=== PATIENT | female | born 1970 | race Caucasian/White ===

== ENCOUNTER 2017-07-20 18:23 | Emergency (ER) | payer OTHER ==
[~2017-07-20] VITALS: Ht 170.2 cm; Wt 59.0 kg
[~2017-07-20 18:23] MED LIST: ALLEGRA ALLERG180 MG PO; MUCINEX TA600 MG/TA2 PO
[2017-07-20 19:27] LABS: URINE BILIRUBIN NEGATIVE (Negative); URINE BLOOD NEGATIVE (Negative); URINE COLOR YELLOW; URINE GLUCOSE-RANDOM* NEGATIVE (Negative); URINE KETONES TRACE (Negative); URINE NITRITE NEGATIVE (Negative); URINE PROTEIN (DIPSTICK) NEGATIVE (Negative); URINE UROBILINOGEN 0.2 E.U./dl (0.2-1.0)
[2017-07-20 19:39] LABS: CASTS None Seen /LPF (None Seen); CRYSTALS None Seen /LPF (None Seen); SQUAMOUS 4-10 Moderate /LPF (0-3); URINE RBC None Seen /HPF (0-2); URINE WBC 6-15 Few /HPF (0-5)
[2017-07-20 20:33] LABS: HEMATOCRIT 38.3 % (37.0-47.0); MCH 28.6 pg (26.0-34.0); MCV 84.2 fL (80.0-100.0); PLATELET COUNT 229 thou/uL (150-400); RBC 4.55 mil/uL (4.20-5.00); RDW 13.1 % (10.5-14.5); WBC 9.2 thou/uL (4.0-11.0)
[2017-07-20 20:34] LABS: MANUAL DIFF YES
[2017-07-20 20:49] LABS: CALCIUM 8.6 mg/dL (8.5-10.1); CREATININE 0.8 mg/dL (0.6-1.0); POTASSIUM 3.3 mmol/L (3.5-5.1)
[2017-07-20 20:53] LABS: ABSOLUTE NEUTROPHILS 8.6 thou/uL (1.4-8.2); ANISOCYTOSIS 1+; TOTAL CELL COUNT 100
[2017-07-20 20:54] LABS: ALBUMIN 3.7 g/dL (3.4-5.0); TOTAL BILIRUBIN 0.6 mg/dL (<0.1-1.0); TOTAL PROTEIN 6.6 g/dL (6.4-8.2)
[2017-07-20] MEDS ORDERED: CARAFATE 1 GM TA1 G1 PO (21:28)
[2017-07-20] MEDS ORDERED: PRILOSEC 20 MG20 MG PO (21:28)
[2017-07-20 21:37] VITALS: BP 112/68
== END 2017-07-20 21:38 | disposition home or self-care (01) ==
LOC: ER 18:23
PROVIDERS: Physician Assistant
DX: K29.70 Gastritis, unspecified, without bleeding (principal); Q61.5 Medullary cystic kidney; Z90.49 Acquired absence of other specified parts of digestive tract; Z90.89 Acquired absence of other organs; Z88.5 Allergy status to narcotic agent; Z88.2 Allergy status to sulfonamides

== ENCOUNTER → 2017-07-28 | Outpatient (CLI) | payer OTHER ==
[~2017-07-28] MED LIST changes: +CARAFATE 1 GM TA1 G1 PO; +PRILOSEC 20 MG20 MG PO
== END ==
LOC: NUC 07:50
DX: R10.11 Right upper quadrant pain (principal)

== ENCOUNTER 2018-08-06 16:49 | Emergency (ER) | payer OTHER ==
[~2018-08-06] VITALS: Ht 170.2 cm; Wt 58.1 kg
--- NOTE | ~2018-08-06 | EKG ---
[address] [address] ELECTROCARDIOGRAM REPORT Name: LOPEZ LEE Nasreen Room #: [facility]#: [id number] Admission: 08/06/18 Attend Phys: Discharge: 08/06/18 Date of : 72 Report #: [id number] THIS REPORT FOR: //name// [facility] ED Test Date: 2018-08-06 Test Time: 18:05:41 Pat Name: LOPEZ LEE Department: Room: Gender: F Inside Account Executive: TSTOR : 1970 Requested By: Екатерина Mattson Order Number: [id number] MD: Syed Dixon Measurements Intervals Wells Rate: 63 P: 63 PA: 156 QRS: 55 QRSD: 90 T: 55 QT: 396 QTc: 406 Interpretive Statements Sinus rhythm Normal tracing Compared to ECG 08/12/2016 13:44:18 No significant changes Electronically Signed On 08-09-2018 8:52:04 CDT by Syed Dixon [email or web address] <ELECTRONICALLY SIGNED> By: Syed Dixon MD, [facility] 08/09/18 0852 1805 1805 Syed Dixon MD, FACC /EPI
[2018-08-06 18:05] LABS: URINE BILIRUBIN NEGATIVE (Negative); URINE BLOOD NEGATIVE (Negative); URINE CLARITY CLEAR; URINE COLOR YELLOW; URINE GLUCOSE-RANDOM* NEGATIVE (Negative); URINE KETONES NEGATIVE (Negative); URINE LEUKOCYTES-REFLEX NEGATIVE (Negative); URINE NITRITE-REFLEX NEGATIVE (Negative); URINE PROTEIN (DIPSTICK) NEGATIVE (Negative); URINE SPECIFIC GRAVITY <= 1.005 (1.005-1.035); URINE UROBILINOGEN 0.2 E.U./dl (0.2-1.0)
[2018-08-06] MEDS ORDERED: SUDAFED 12 HOU120 MG PO (18:27)
[2018-08-06 18:28] LABS: ABSOLUTE NEUTROPHILS 8.9 thou/uL (1.4-8.2); BASOPHILS 0.6 % (0.0-2.0); HEMATOCRIT 39.9 % (37.0-47.0); HEMOGLOBIN 13.4 gm/dL (12.0-15.0); LYMPHOCYTES 15.6 % (24.0-44.0); MCH 29.1 pg (26.0-34.0); MCHC 33.6 g/dL (28.0-37.0); MCV 86.4 fL (80.0-100.0); PLATELET COUNT 291 thou/uL (150-400); POLYS 75.8 % (36.0-66.0); RBC 4.62 mil/uL (4.20-5.00); RDW 13.2 % (10.5-14.5); WBC 11.7 thou/uL (4.0-11.0)
[2018-08-06] MEDS ORDERED: MUCINEX600 MG PO (18:28)
[2018-08-06 18:34] LABS: CALCIUM 9.5 mg/dL (8.5-10.1); CREATININE 0.9 mg/dL (0.6-1.0); POTASSIUM 3.6 mmol/L (3.5-5.1)
[2018-08-06 18:41] LABS: ALBUMIN 4.6 g/dL (3.4-5.0); TOTAL BILIRUBIN 0.3 mg/dL (<0.1-1.0); TOTAL PROTEIN 8.5 g/dL (6.4-8.2)
[2018-08-06] MEDS ORDERED: NORCO 5-325 TA1 EACH PO (20:00)
[2018-08-06] MEDS ORDERED: ZANTAC 150MG T150 MG PO (20:00)
[2018-08-06] MEDS ORDERED: ONDANSETRON HCL4 M2 PO (20:00)
[2018-08-06] MEDS ORDERED: TRAMADOL 50 MG50 MG PO (20:03)
[2018-08-06 20:14] VITALS: BP 107/64
== END 2018-08-06 20:19 | disposition home or self-care (01) ==
LOC: ER 16:49
PROVIDERS: Nurse Practitioner Family
DX: K82.9 Disease of gallbladder, unspecified (principal); K90.0 Celiac disease; Z90.49 Acquired absence of other specified parts of digestive tract; Z83.79 Family history of other diseases of the digestive system; Z88.1 Allergy status to other antibiotic agents; Z88.6 Allergy status to analgesic agent; Z91.018 Allergy to other foods

== ENCOUNTER → 2018-08-23 | Outpatient (CLI) | payer OTHER ==
[~2018-08-23] MED LIST changes: +MUCINEX600 MG PO; +NORCO 5-325 TA1 EACH PO; +ONDANSETRON HCL4 M2 PO; +SUDAFED 12 HOU120 MG PO; +TRAMADOL 50 MG50 MG PO; +ZANTAC 150MG T150 MG PO
== END ==
LOC: NUC 09:26
DX: R11.2 Nausea with vomiting, unspecified (principal); R10.11 Right upper quadrant pain

== ENCOUNTER → 2018-09-13 | Outpatient (CLI) | payer OTHER ==
--- NOTE | ~2018-09-13 | PATH ---
[facility] [place] [address] PATHOLOGY RPT PROCEDURE Name: TRINH LEE Room #: [facility] Gali.#: [id number] Admission: 09/13/18 Date of : 72 Discharge: Report #: [id number] Path Case #: [id number] [facility] Accession Number: [id number] . 01 Material submitted: . PART A: SMALL BOWEL BIOPSY H/O CELIAC PART B: RANDOM GASTRIC BIOPSY R/O H PYLORI . 01 Clinical history: . Pre-OP DX: Celiac, nausea with vomiting, abdominal pain Post-OP DX: EGD . 02 Diagnosis: A. Small bowel mucosa, "small bowel", endoscopic biopsy: - No diagnostic abnormalities. - Negative for villous blunting or increase in intraepithelial lymphocytes. . B. Gastric mucosa, random gastric, endoscopic biopsy: - Mild reactive gastropathy. - Negative for intestinal metaplasia or atrophy. - Negative for Helicobacter pylori (properly controlled immunohistochemical stain performed). (IUV:pit 09/14/2018) QTP/09/14/2018 . 02 Electronically signed: . Anali Saenz MD, Pathologist NPI- [id number] . 01 Gross description: . A. Received in formalin labeled "Rosana, Trinh, small bowel BX, history of celiac," are 5 segments of frank soft tissue measuring 1.0 x 0.8 x 0.2 cm in aggregate dimensions and ranging from 0.1 to 0.4 cm in maximum dimension. The specimen is submitted entirely in cassette A1. . B. Received in formalin labeled "Rosana, Trinh, random gastric BX, rule out H. pylori," are multiple segments of frank soft tissue measuring 1.4 x 0.5 x 0.1 cm in aggregate dimensions. The specimen is filtered and entirely submitted in cassette B1. (TSD; 09/13/2018) TOB/TOB . 02 Pathologist provided ICD-10: K31.9, R11.2, R10.9 . 02 CPT . [address] [address] PATHOLOGY RPT PROCEDURE Name: ROMARIOMARGARETMARISELTRINH Nasreen Room #: REG [facility]#: [id number] Admission: 09/13/18 Date of : 72 Discharge: Report #: [id number] Path Case #: [id number] Specimen Comment: A courtesy copy of this report has been sent to Specimen Comment: [phone], . Specimen Comment: Report sent to / DR DODD Performed at: [address], [place], [place] [id number] MD Olivier Ruiz MD Phone: [phone] Performed at: [address] [id number] MD Anali Saenz MD Phone: [phone]
== END | disposition home or self-care (01) ==
LOC: GI 11:17
DX: K31.9 Disease of stomach and duodenum, unspecified (principal); K21.9 Gastro-esophageal reflux disease without esophagitis; Z88.2 Allergy status to sulfonamides; Z88.8 Allergy status to other drugs, medicaments and biological substances; Z90.49 Acquired absence of other specified parts of digestive tract; Z98.890 Other specified postprocedural states
CPT/HCPCS: 62110; 62900

== ENCOUNTER → 2018-10-26 | Day surgery (SDC) | payer OTHER ==
[~2018-10-26] MED LIST changes: +ALFALFA250 MG PO; +BALANCE B-1001 EACH PO; +CALCIUM 500 +1 EAC5 PO; +CAPRYLIC ACID PO; +CHROMIUM PICO200 MCG PO; +COLACE100 MG PO; +FENUGREEK500 MG PO; +GALZIN25 MG PO; +GINGER ROOT550 MG PO; +IRON18 M1 PO; +L-GLUTAMINE500 M2 PO; +OMEGA 3-6-9 11200 M1 PO; +PERCOCET PO; +PROTONIX40 M1 PO; +SELENIMIN50 MCG PO; +SENNA-S TABLET1 EACH PO; +TURMERIC500 M2 PO; +VITAMIN C1000 MG PO
[2018-10-26 06:32] LABS: HEMATOCRIT 39.5 % (37.0-47.0); HEMOGLOBIN 13.5 gm/dL (12.0-15.0); MCH 29.3 pg (26.0-34.0); MCHC 34.2 g/dL (28.0-37.0); MCV 85.5 fL (80.0-100.0); RBC 4.62 mil/uL (4.20-5.00); RDW 13.5 % (10.5-14.5); WBC 10.1 thou/uL (4.0-11.0)
[2018-10-26 07:03] VITALS: BP 103/62
[2018-10-26 09:18] VITALS: BP 103/62
--- NOTE | 2018-10-26 09:51 | O ---
[facility] [place] [address] OPERATIVE REPORT Name: LOPEZ LEE Room #: 150-2 [facility]#: [id number] Admission: 10/26/18 Attend Phys: Reza Kurtz MD, F Discharge: Date of : 72 Report #: [id number] THIS REPORT FOR: //name// CC: Evie Kurtz DATE OF SERVICE: 10/26/2018 SURGEON: Reza Kurtz M.D. VICE CHAIRMAN: None. PREOPERATIVE DIAGNOSES: 1. Biliary colic with dyskinesia. 2. Celiac disease. POSTOPERATIVE DIAGNOSES: 1. Biliary colic with dyskinesia. 2. Celiac disease. PROCEDURE: Laparoscopic cholecystectomy with intraoperative cholangiogram. ANESTHESIA: General endotracheal anesthesia and local anesthetic. ESTIMATED BLOOD LOSS: 5 mL. SPECIMEN: Gallbladder. COMPLICATIONS: None appreciated. INDICATIONS FOR PROCEDURE: This is a 47-year-old female patient of Dr. Evie Carter who was seen with a 2-week history of right upper quadrant abdominal pain that has now generalized, associated with reflux and nausea postprandially despite any type of diet. She denies fever or chills. She underwent a CT of the abdomen and pelvis and abdominal ultrasound, neither of which revealed cholelithiasis. A PIPIDA scan showed a normal ejection fraction with a significant reproduction of her symptoms with administration of the fatty meal. The patient presents now for laparoscopic cholecystectomy with cholangiogram. OPERATIVE FINDINGS: Upon entrance into the abdominal cavity, the liver, stomach, small bowel and colon in the surrounding area appeared otherwise normal. The gallbladder itself did not appear to be either acutely or chronically inflamed. The critical view consisting of cystic artery, cystic duct and lower edge of the gallbladder forming a window through which the liver was visible, was seen prior to clipping the cystic duct for cholangiogram. The cholangiogram showed free flow of contrast into the duodenal sweep with no [facility] [address] [place] [address] OPERATIVE REPORT Name: LOPEZ ELE Room #: 150-2 [facility]#: [id number] Admission: 10/26/18 Attend Phys: Reza Kurtz MD, F Discharge: Date of : 72 Report #: [id number] filling defects. The biliary tree appeared normal. After division of the cystic duct, 3 clips remained on the cystic duct stump. The liver bed was hemostatic and the Hemoclips were secured. No other significant intra-abdominal pathology was seen. Upon opening the gallbladder on the back table, no gallstones were present within the gallbladder. At the conclusion of the operation, the sponge, needle and instrument counts were correct. DESCRIPTION OF PROCEDURE IN DETAIL: After the benefits and risks of the procedure were explained to the patient which include but are not limited to risks of bleeding, infection, injury to the biliary tree, injury to adjacent organs, risk of DVT, pulmonary embolus, postoperative pain and postoperative expectations informed consent was obtained. The patient was identified in the preoperative holding area. The patient was then given IV antibiotics as documented in the chart to comply with the SCIP protocol. The patient was taken to the operating room and was placed in the supine position. The patient was given IV sedation and was intubated without incident. A time-out was performed to correctly identify the patient and procedure. SCDs were placed on the patient's bilateral lower extremities. The patient's abdomen was then prepped and draped in the standard sterile fashion with ChloraPrep. Local anesthetic was infiltrated into the skin and subcutaneous tissue. A periumbilical incision was made with a #15 blade scalpel. The 11-mm Visiport was then placed intraperitoneally with the 10-mm 0-degree angled laparoscope. After confirmation of placement within the peritoneal cavity, the scope was changed to a 10-mm 30 degree angled laparoscope and pneumoperitoneum was achieved with insufflation of carbon dioxide. The patient was placed in the reverse Trendelenburg position, rotated to the patient's left. A subxiphoid 5 mm and right subcostal 5 mm ports times 2 were placed under direct visualization after local anesthetic was infiltrated into the skin and subcutaneous tissue and appropriately sized incisions were made. Operative findings are as noted above. The dome of the gallbladder was retracted in a cephalad direction. The gallbladder peritoneum was scored medially and laterally after takedown of the adhesions to the gallbladder. Dissection was carried out around the cystic artery and cystic duct to identify each structure as entering directly into the gallbladder. The critical view as described above was seen. A Hemoclip was then placed on the cystic duct at its junction with the gallbladder. A ductotomy was made and the cholangiocatheter was passed into the cystic duct. A clip was placed, contrast was then injected and cholangiogram findings are as noted above. The cholangiocatheter was then removed and the cystic duct was triply clipped distal to the ductotomy. The duct was divided at the ductotomy site with the ultrasonic scalpel with a good seal. The cystic artery was then divided in a similar fashion with good hemostasis. The gallbladder was then dissected off the liver bed with the ultrasonic scalpel, and after fully removing the gallbladder, it was placed in an Endopouch and removed through the periumbilical port site. [address] [address] OPERATIVE REPORT Name: LOPEZ LEE Room #: 150-2 [facility].#: [id number] Admission: 10/26/18 Attend Phys: Reza Kurtz MD, F Discharge: Date of : 72 Report #: [id number] The abdominal cavity was then reentered. Other operative findings are as noted above. The liver bed was hemostatic. After ensuring final hemostasis and ensuring that the clips were secure, the periumbilical port site fascial opening was closed with a simple interrupted 0 PDS suture under direct visualization using the Shamir Hercules laparoscopic fascial closure device. The ports were removed and the abdominal cavity was desufflated. The fascial suture was tied under direct visualization to ensure no incorporation of intraabdominal content. Interrupted subcuticular 4-0 Monocryl sutures and Dermabond were used to close the skin. The patient tolerated the procedure well. The patient was awakened, extubated and taken to the recovery room in stable condition with no apparent intraoperative complications. <ELECTRONICALLY SIGNED> By: Reza Kurtz MD, FACS 10/26/1851 Reza Kurtz MD, FACS /nt
== END | disposition home or self-care (01) ==
LOC: CANPRESDC → OR 09-30 07:00 → TBA 05:36 → OR 06:04 → TBA 10:10 → OR 10:10
PROVIDERS: Surgery
DX: K80.20 Calculus of gallbladder without cholecystitis without obstruction (principal); K82.8 Other specified diseases of gallbladder; K90.0 Celiac disease; K21.9 Gastro-esophageal reflux disease without esophagitis; Z98.890 Other specified postprocedural states; Z90.49 Acquired absence of other specified parts of digestive tract; Z79.899 Other long term (current) drug therapy; Z88.2 Allergy status to sulfonamides; Z88.8 Allergy status to other drugs, medicaments and biological substances; Z79.891 Long term (current) use of opiate analgesic
CPT/HCPCS: 50010; 50101; 70005

== ENCOUNTER → 2019-11-14 | Outpatient (CLI) | payer OTHER | LOC: ULTRA 15:38 | DX: D25.9 Leiomyoma of uterus, unspecified (principal) ==

== ENCOUNTER → 2020-03-14 | Outpatient (CLI) | payer OTHER | LOC: MRI 07:24 | PROVIDERS: ATTEND Orthopaedic Surgery Hand Surgery | DX: M79.89 Other specified soft tissue disorders (principal) ==

== ENCOUNTER → 2020-11-29 | Outpatient (CLI) | payer OTHER | LOC: LAB 08:53 | PROVIDERS: ATTEND Specialist | DX: Z20.822 Contact with and (suspected) exposure to COVID-19 (principal) ==

== ENCOUNTER → 2021-02-11 | Outpatient (CLI) | payer OTHER ==
[2021-02-11 14:27] LABS: ABSOLUTE NEUTROPHILS 7.6 thou/uL (1.4-8.2); BASOPHILS 0.5 % (0.0-2.0); EOSINOPHILS 0.8 % (0.0-3.0); HEMATOCRIT 42.2 % (37.0-47.0); HEMOGLOBIN 13.9 gm/dL (12.0-15.0); LYMPHOCYTES 13.7 % (24.0-44.0); MCH 28.6 pg (26.0-34.0); MCHC 32.9 g/dL (28.0-37.0); MONOCYTES 5.6 % (1.0-8.0); PLATELET COUNT 325 thou/uL (150-400); POLYS 79.4 % (36.0-66.0); RBC 4.85 mil/uL (4.20-5.00); RDW 13.8 % (10.5-14.5); WBC 9.6 thou/uL (4.0-11.0)
[2021-02-11 14:45] LABS: INR 0.9; PROTIME 9.9 Seconds (10.5-12.1)
[2021-02-11 14:48] LABS: ALBUMIN 4.8 g/dL (3.4-5.0); CALCIUM 9.8 mg/dL (8.5-10.1); CREATININE 0.9 mg/dL (0.6-1.0); POTASSIUM 3.9 mmol/L (3.5-5.1); TOTAL BILIRUBIN 0.3 mg/dL (0.2-1.0); TOTAL PROTEIN 8.3 g/dL (6.4-8.2)
[2021-02-12 05:07] LABS: 25-HYDROXY TOTAL 30.5 ng/mL (30.0-100.0)
== END ==
LOC: LAB 13:23
PROVIDERS: ATTEND Internal Medicine Gastroenterology
DX: K90.0 Celiac disease (principal); R11.0 Nausea; R12 Heartburn

== ENCOUNTER → 2021-02-15 | Outpatient (CLI) | payer OTHER ==
[~2021-02-15] MED LIST changes: +ASHWAGANDHA RO300 MG PO; +BALANCE B PO; -BALANCE B-1001 EACH PO; +BERBERINE PO; +CHROMIUM PIC1000 MCG PO; -CHROMIUM PICO200 MCG PO; +ENZYME DIGEST1 EACH PO; +HYOSCYAMINE0.125 MG PO; +MILK THISTLE140 M2 PO; +PROBIOTIC1 EAC7 PO; -PROTONIX40 M1 PO; +PROTONIX40 M2 PO; +TUMS X-STR300 MG PO
== END ==
LOC: PAC 15:16
PROVIDERS: ATTEND Student in an Organized Health Care Education/Training Program
DX: Z01.812 Encounter for preprocedural laboratory examination (principal); Z20.822 Contact with and (suspected) exposure to COVID-19

== ENCOUNTER → 2021-02-18 | Outpatient (CLI) | payer OTHER ==
[~2021-02-18] VITALS: Ht 170.2 cm; Wt 56.2 kg
== END | disposition home or self-care (01) ==
LOC: GI 08:08
PROVIDERS: ATTEND Internal Medicine Gastroenterology
DX: Z12.11 Encounter for screening for malignant neoplasm of colon (principal); R12 Heartburn; K90.0 Celiac disease; K21.9 Gastro-esophageal reflux disease without esophagitis; D50.9 Iron deficiency anemia, unspecified; Z98.890 Other specified postprocedural states; Z79.899 Other long term (current) drug therapy; Z90.49 Acquired absence of other specified parts of digestive tract; Z88.8 Allergy status to other drugs, medicaments and biological substances
CPT/HCPCS: 62110; 62900

== ENCOUNTER → 2021-04-03 | Outpatient (CLI) | payer OTHER | LOC: ULTRA 08:30 | PROVIDERS: ATTEND Internal Medicine Gastroenterology | DX: K21.9 Gastro-esophageal reflux disease without esophagitis (principal); K90.0 Celiac disease; Z90.49 Acquired absence of other specified parts of digestive tract ==

== ENCOUNTER → 2021-06-03 | Outpatient (CLI) | payer OTHER | LOC: LAB 09:04 | PROVIDERS: ATTEND Hospitalist | DX: U07.1 COVID-19 (principal) ==

== ENCOUNTER → 2021-07-15 | Outpatient (CLI) | payer OTHER ==
[~2021-07-15] VITALS: Ht 170.2 cm; Wt 56.7 kg
[~2021-07-15] MED LIST changes: +VITAMIN D325 MC4 PO
== END | disposition home or self-care (01) ==
LOC: GI 07:15
PROVIDERS: ATTEND Internal Medicine Gastroenterology
DX: R13.10 Dysphagia, unspecified (principal); R12 Heartburn; K21.9 Gastro-esophageal reflux disease without esophagitis; Z98.890 Other specified postprocedural states; Z79.899 Other long term (current) drug therapy; Z90.49 Acquired absence of other specified parts of digestive tract; Z88.8 Allergy status to other drugs, medicaments and biological substances; Z88.2 Allergy status to sulfonamides
CPT/HCPCS: 62110; 62900

== ENCOUNTER → 2021-10-18 | Outpatient (CLI) | payer OTHER | LOC: LAB 13:25 | PROVIDERS: ATTEND Internal Medicine Gastroenterology | DX: K21.9 Gastro-esophageal reflux disease without esophagitis (principal); R10.13 Epigastric pain; K90.0 Celiac disease ==

== ENCOUNTER → 2021-11-25 | Outpatient (CLI) | payer OTHER | LOC: GI 08:15 | PROVIDERS: ATTEND Internal Medicine Gastroenterology | DX: R93.3 Abnormal findings on diagnostic imaging of other parts of digestive tract (principal); K63.89 Other specified diseases of intestine; Z79.899 Other long term (current) drug therapy; Z98.890 Other specified postprocedural states; Z20.822 Contact with and (suspected) exposure to COVID-19 | CPT/HCPCS: 62110; 62900 ==